=== PATIENT | male | born 1995 | race Caucasian/White ===

== ENCOUNTER 2022-07-23 21:48 | Inpatient (IN) | payer OTHER ==
[~2022-07-23] VITALS: Ht 167.6 cm; Wt 74.7 kg
[2022-07-23 22:37] LABS: HEMATOCRIT 41.7 % (42.0-52.0); HEMOGLOBIN 14.1 g/dl (13.5-17.5); MEAN CORPUSCULAR HEMOGLOBIN 28.5 pg (27.0-33.0); MEAN CORPUSCULAR HGB CONC 33.8 g/dl (32.0-36.5); MEAN CORPUSCULAR VOLUME 84.4 fl (80.0-96.0); PLATELET COUNT, AUTOMATED 257 10^3/uL (150-450); RED BLOOD COUNT 4.94 10^6/uL (4.30-6.10); WHITE BLOOD COUNT 5.9 10^3/uL (4.0-10.0)
[2022-07-23 23:11] LABS: RSV AMPLIFICATION NEGATIVE (NEGATIVE)
[2022-07-23 23:30] LABS: ACETAMINOPHEN LEVEL < 2.0 UG/ML (10.0-30.0); ALT/SGPT 10 U/L (12-78); BILIRUBIN,DIRECT 0.2 MG/DL (0.0-0.2); BILIRUBIN,TOTAL 0.5 MG/DL (0.2-1.0); BLOOD UREA NITROGEN 13 MG/DL (7-18); CALCIUM LEVEL 8.5 MG/DL (8.5-10.1); CARBON DIOXIDE LEVEL 25 MEQ/L (21-32); CHLORIDE LEVEL 108 MEQ/L (98-107); CREATININE FOR GFR 1.04 MG/DL (0.70-1.30); ETHYL ALCOHOL (ETHANOL) < 0.003 % (0.000-0.010); GLOMERULAR FILTRATION RATE > 60.0 (>60); GLUCOSE, FASTING 132 MG/DL (70-100); POTASSIUM SERUM 3.2 MEQ/L (3.5-5.1); SALICYLATE LEVEL < 1.7 MG/DL (5.0-30.0); SODIUM LEVEL 141 MEQ/L (136-145); TOTAL PROTEIN 7.3 GM/DL (6.4-8.2)
[2022-07-23] MEDS ORDERED: POTASSIUM CHLORIDE 10MEQ SR TABLET PO ONE (23:55)
[2022-07-24 00:51] LABS: AMPHETAMINES LEVEL URINE NEGATIVE (NEGATIVE); BARBITURATES URINE NEGATIVE (NEGATIVE); BENZODIAZEPINES URINE NEGATIVE (NEGATIVE); CANNABINOIDS URINE POSITIVE (NEGATIVE); COCAINE METABOLITE URINE NEGATIVE (NEGATIVE); METHADONE URINE NEGATIVE (NEGATIVE); OPIATES URINE NEGATIVE (NEGATIVE); PHENCYCLIDINE URINE NEGATIVE (NEGATIVE)
[2022-07-24 06:59] LABS: APPEARANCE, URINE MANUAL CLOUDY (CLEAR); COLOR, URINE MANUAL YELLOW (YELLOW)
[2022-07-24 07:00] LABS: PH,URINE MAN 5.5 UNITS (5.0 - 7.0)
[2022-07-24 07:01] LABS: BILIRUBIN, URINE MANUAL NEGATIVE (NEGATIVE); BLOOD URINE MANUAL NEGATIVE (NEGATIVE); GLUCOSE, URINE (UA) MANUAL NEGATIVE (NEGATIVE); KETONE, URINE MANUAL NEGATIVE (NEGATIVE); LEUKOCYTE ESTERASE, URINE MAN NEGATIVE (NEGATIVE); NITRITE, URINE MANUAL NEGATIVE (NEGATIVE); PROTEIN, URINE MANUAL NEGATIVE (NEGATIVE); UROBILINOGEN, URINE MANUAL NORMAL (NORMAL)
[2022-07-24 07:21] LABS: AMORPHOUS SEDIMENT, URINE LARGE AMOUNT (NEGATIVE); BACTERIA, URINE SMALL AMOUNT; HYALINE CAST, URINE NONE SEEN /lpf (0-1); RBC, URINE NONE SEEN /hpf (0-3); SQUAMOUS EPITHELIAL CELL URINE NONE SEEN /hpf (SMALL AMT); WBC, URINE NONE SEEN /hpf (0-3)
[2022-07-24] MEDS ORDERED: ACETAMINOPHEN TAB 650MG DOSE (2X325MG) PO PRN (08:05)
[2022-07-24] MEDS ORDERED: traZODone 50 MG TAB PO PRN (08:05)
[2022-07-24] MEDS ORDERED: MOM 30ML SUSPENSION UDC PO PRN (08:05)
[2022-07-24] MEDS ORDERED: MAALOX 30 ML SUSP *UDC PO PRN (08:05)
[2022-07-24] MEDS ORDERED: MELA1TAB9 PO (08:32)
[2022-07-24] MEDS ORDERED: HOME MED LIST COMPLETE! XX SCH (08:35)
[2022-07-24] MEDS: NICOTINE 21MG/24HR 1 EA TRANSDERMAL TD SCH (09:00)
[2022-07-24 10:16] VITALS: BP 138/72
[2022-07-24 16:04] VITALS: BP 134/74
[2022-07-25 06:23] VITALS: BP 143/79
[2022-07-25] MEDS: NICOTINE 21MG/24HR 1 EA TRANSDERMAL TD SCH (09:00)
[2022-07-25] MEDS: ESCITALOPRAM OXALATE 5MG TABLET (LEXAPRO) PO SCH (09:36)
[2022-07-25] MEDS ORDERED: ALBUTEROL 90 MCG/ACT 8GM HFA INHALER INH PRN (10:30)
[2022-07-25] MEDS: FLUTICASONE HFA 110 MCG 12 GM INHALER (FLOVENT) INH SCH ×2 (11:17→21:07)
[2022-07-25 16:15] VITALS: BP 130/72
[2022-07-25] MEDS: RAMELTEON 8 MG TAB (ROZEREM) PO SCH (22:57)
[2022-07-26 07:03] VITALS: BP 132/63
[2022-07-26] MEDS: ESCITALOPRAM OXALATE 5MG TABLET (LEXAPRO) PO SCH (09:44)
[2022-07-26] MEDS: FLUTICASONE HFA 110 MCG 12 GM INHALER (FLOVENT) INH SCH ×2 (09:44→21:49)
[2022-07-26] MEDS: IBUPROFEN 600MG TAB PO PRN (15:16)
[2022-07-26 16:59] VITALS: BP 142/85
[2022-07-26] MEDS ORDERED: IBUPROFEN 600MG TAB PO SCH (18:00)
[2022-07-26] MEDS: RAMELTEON 8 MG TAB (ROZEREM) PO SCH (21:50)
[2022-07-27 07:00] VITALS: BP 139/81
[2022-07-27] MEDS: ESCITALOPRAM OXALATE 5MG TABLET (LEXAPRO) PO SCH (09:08)
[2022-07-27] MEDS: FLUTICASONE HFA 110 MCG 12 GM INHALER (FLOVENT) INH SCH ×2 (09:09→21:13)
[2022-07-27] MEDS ORDERED: LEXA1TAB PO (11:50)
[2022-07-27] MEDS ORDERED: RAME8TAB2 PO (11:50)
[2022-07-27] MEDS ORDERED: FLUT11IN INH (11:50)
[2022-07-27] MEDS ORDERED: VENTAER INH (11:50)
[2022-07-27 18:08] VITALS: BP 128/76
[2022-07-27] MEDS: RAMELTEON 8 MG TAB (ROZEREM) PO SCH (21:13)
[2022-07-27] MEDS: IBUPROFEN 600MG TAB PO PRN (21:14)
[2022-07-28 06:12] VITALS: BP 128/76
[2022-07-28] MEDS: ESCITALOPRAM OXALATE 10 MG TAB (LEXAPRO) PO SCH (09:41)
[2022-07-28] MEDS: FLUTICASONE HFA 110 MCG 12 GM INHALER (FLOVENT) INH SCH ×2 (09:41→20:47)
[2022-07-28 18:07] VITALS: BP 114/72
[2022-07-28] MEDS: RAMELTEON 8 MG TAB (ROZEREM) PO SCH (20:47)
[2022-07-29 06:28] VITALS: BP 139/79
[2022-07-29] MEDS: FLUTICASONE HFA 110 MCG 12 GM INHALER (FLOVENT) INH SCH ×2 (07:36→20:53)
[2022-07-29] MEDS: ESCITALOPRAM OXALATE 10 MG TAB (LEXAPRO) PO SCH (09:15)
[2022-07-29 19:21] VITALS: BP 123/59
[2022-07-29] MEDS: RAMELTEON 8 MG TAB (ROZEREM) PO SCH (20:53)
[2022-07-29] MEDS: IBUPROFEN 600MG TAB PO PRN (20:54)
[2022-07-30 06:27] VITALS: BP 145/80
[2022-07-30] MEDS: ESCITALOPRAM OXALATE 10 MG TAB (LEXAPRO) PO SCH (09:46)
[2022-07-30] MEDS: FLUTICASONE HFA 110 MCG 12 GM INHALER (FLOVENT) INH SCH ×2 (09:46→21:21)
[2022-07-30 18:06] VITALS: BP 136/72
[2022-07-30] MEDS: RAMELTEON 8 MG TAB (ROZEREM) PO SCH (21:21)
[2022-07-31 07:00] VITALS: BP 147/68
[2022-07-31] MEDS: FLUTICASONE HFA 110 MCG 12 GM INHALER (FLOVENT) INH SCH ×2 (08:46→21:32)
[2022-07-31] MEDS: ESCITALOPRAM OXALATE 10 MG TAB (LEXAPRO) PO SCH (08:46)
[2022-07-31 18:09] VITALS: BP 113/69
[2022-07-31] MEDS: RAMELTEON 8 MG TAB (ROZEREM) PO SCH (21:32)
[2022-07-31] MEDS: IBUPROFEN 600MG TAB PO PRN (21:33)
[2022-08-01 06:04] VITALS: BP 125/77
[2022-08-01] MEDS: ESCITALOPRAM OXALATE 10 MG TAB (LEXAPRO) PO SCH (08:40)
[2022-08-01] MEDS: FLUTICASONE HFA 110 MCG 12 GM INHALER (FLOVENT) INH SCH ×2 (08:40→21:15)
[2022-08-01 18:04] VITALS: BP 114/65
[2022-08-01] MEDS: RAMELTEON 8 MG TAB (ROZEREM) PO SCH (21:15)
[2022-08-01] MEDS: IBUPROFEN 600MG TAB PO PRN (22:04)
[2022-08-02 06:30] VITALS: BP 137/84
[2022-08-02] MEDS: ESCITALOPRAM OXALATE 10 MG TAB (LEXAPRO) PO SCH (08:47)
[2022-08-02] MEDS: FLUTICASONE HFA 110 MCG 12 GM INHALER (FLOVENT) INH SCH ×2 (08:47→20:57)
[2022-08-02 16:23] VITALS: BP 128/60
[2022-08-02] MEDS: traZODone 50 MG TAB PO PRN (22:15)
[2022-08-03 06:22] VITALS: BP 137/63
[2022-08-03] MEDS: FLUTICASONE HFA 110 MCG 12 GM INHALER (FLOVENT) INH SCH ×2 (09:07→21:20)
[2022-08-03] MEDS: ESCITALOPRAM OXALATE 10 MG TAB (LEXAPRO) PO SCH (09:07)
[2022-08-03] MEDS ORDERED: TRAZ-252 PO (09:26)
[2022-08-03 16:11] VITALS: BP 127/70
[2022-08-03] MEDS: IBUPROFEN 600MG TAB PO PRN (18:04)
[2022-08-03] MEDS: traZODone 50 MG TAB PO PRN (23:07)
[2022-08-04 06:21] VITALS: BP 132/68
[2022-08-04] MEDS: FLUTICASONE HFA 110 MCG 12 GM INHALER (FLOVENT) INH SCH ×2 (08:34→21:27)
[2022-08-04] MEDS: ESCITALOPRAM OXALATE 10 MG TAB (LEXAPRO) PO SCH (08:35)
[2022-08-04] MEDS: IBUPROFEN 600MG TAB PO PRN ×2 (14:33→23:07)
[2022-08-04 16:17] VITALS: BP 126/59
[2022-08-04] MEDS: traZODone 50 MG TAB PO PRN (23:06)
[2022-08-05 06:31] VITALS: BP 126/61
[2022-08-05] MEDS: ESCITALOPRAM OXALATE 10 MG TAB (LEXAPRO) PO SCH (08:55)
[2022-08-05] MEDS: FLUTICASONE HFA 110 MCG 12 GM INHALER (FLOVENT) INH SCH ×2 (08:55→19:35)
[2022-08-05] MEDS: IBUPROFEN 600MG TAB PO PRN ×2 (10:32→19:39)
[2022-08-05 18:18] VITALS: BP 141/78
[2022-08-05] MEDS: traZODone 50 MG TAB PO PRN (22:58)
[2022-08-06 06:04] VITALS: BP 115/67
[2022-08-06] MEDS: ESCITALOPRAM OXALATE 10 MG TAB (LEXAPRO) PO SCH (09:03)
[2022-08-06] MEDS: FLUTICASONE HFA 110 MCG 12 GM INHALER (FLOVENT) INH SCH ×2 (09:03→21:29)
[2022-08-06 16:07] VITALS: BP 135/65
[2022-08-06] MEDS: IBUPROFEN 600MG TAB PO PRN (21:29)
[2022-08-06] MEDS: traZODone 50 MG TAB PO PRN (22:56)
[2022-08-07 06:36] VITALS: BP 128/66
[2022-08-07] MEDS: ESCITALOPRAM OXALATE 10 MG TAB (LEXAPRO) PO SCH (09:06)
[2022-08-07] MEDS: FLUTICASONE HFA 110 MCG 12 GM INHALER (FLOVENT) INH SCH ×2 (09:06→22:45)
[2022-08-07] MEDS: IBUPROFEN 600MG TAB PO PRN ×2 (09:07→22:46)
[2022-08-07 16:10] VITALS: BP 124/60
[2022-08-07] MEDS: traZODone 50 MG TAB PO PRN (22:45)
[2022-08-08 06:31] VITALS: BP 148/85
[2022-08-08] MEDS: IBUPROFEN 600MG TAB PO PRN ×2 (08:40→20:50)
[2022-08-08] MEDS: FLUTICASONE HFA 110 MCG 12 GM INHALER (FLOVENT) INH SCH ×2 (08:40→20:50)
[2022-08-08] MEDS: ESCITALOPRAM OXALATE 10 MG TAB (LEXAPRO) PO SCH (08:41)
[2022-08-08 16:07] VITALS: BP 110/56
[2022-08-08] MEDS: traZODone 50 MG TAB PO PRN (23:13)
[2022-08-09 06:29] VITALS: BP 114/64
[2022-08-09] MEDS: FLUTICASONE HFA 110 MCG 12 GM INHALER (FLOVENT) INH SCH ×2 (09:11→23:01)
[2022-08-09] MEDS: ESCITALOPRAM OXALATE 10 MG TAB (LEXAPRO) PO SCH (09:11)
[2022-08-09] MEDS: IBUPROFEN 600MG TAB PO PRN (09:12)
[2022-08-09 18:04] VITALS: BP 129/64
[2022-08-09] MEDS: traZODone 50 MG TAB PO PRN (23:02)
[2022-08-10] MEDS: ESCITALOPRAM OXALATE 10 MG TAB (LEXAPRO) PO SCH (08:55)
[2022-08-10] MEDS: FLUTICASONE HFA 110 MCG 12 GM INHALER (FLOVENT) INH SCH (08:56)
== END 2022-08-10 13:08 | disposition home or self-care (01) | DRG 885 ==
LOC: M ED 21:48 → M ED INP 07-24 08:05 → M PSY 07-24 10:16
PROVIDERS: ADMIT Psychiatry & Neurology Psychiatry; ATTEND Psychiatry & Neurology Psychiatry
DX: F33.9 Major depressive disorder, recurrent, unspecified (principal); R45.851 Suicidal ideations; F40.01 Agoraphobia with panic disorder; F60.89 Other specific personality disorders; F60.6 Avoidant personality disorder; Z91.010 Allergy to peanuts; F12.90 Cannabis use, unspecified, uncomplicated; J45.30 Mild persistent asthma, uncomplicated; F17.200 Nicotine dependence, unspecified, uncomplicated; E87.6 Hypokalemia; Z79.899 Other long term (current) drug therapy